=== PATIENT | female | born 1955 ===

== ENCOUNTER 2017-07-05 09:35 | Outpatient (CLI) | payer MEDICARE, MEDICAID ==
--- NOTE | 2017-07-05 10:42 | MRI ---
MRI BRAIN NONCONTRAST: HISTORY: 62-year-old female with H53.9 - vision changes; R51 - frequent headaches. FINDINGS: The ventricles are normal in size and configuration. There is no restricted diffusion, midline shift or any other mass effect, recent intraaxial hemorrhage, or extraaxial fluid collection. There are a few scattered punctate T2-hyperintensities in the cerebral white matter consistent with mild chronic ischemic white matter changes due to mild microvascular atherosclerosis. IMPRESSION: 1. Mild chronic ischemic white matter changes. 2. Otherwise negative. elan POS: [facility]
--- NOTE | 2017-07-05 12:30 | MRI ---
CERVICAL SPINE MRI NONCONTRAST: INDICATIONS: Bilateral upper extremity weakness. History of remote neck injury. FINDINGS: The cervical spinal cord demonstrates appropriate caliber and contour. The craniocervical junction i s intact. C1-C2: No evidence of central canal stenosis. C2-C3: No evidence of central canal stenosis. C3-C4: There is a mild disk bulge without significant central canal stenosis. There is mild right f oraminal stenosis. No high grade left foraminal narrowing. C4-C5: No significant central canal narrowing or neural foraminal stenosis. C5-C6: Mild disk bulge without significant central canal narrowing or neural foraminal stenosis. C6-C7: Mild broad-based disk bulge with mild narrowing of the right neural foramen. No significant central canal or left foraminal compromise. C7-T1: No significant central canal or neural foraminal stenosis. Incidental note of small, round T2 hyperintensity within the cervical spinal cord, at the C4 through C6 levels, compatible with benign dilatation of the central spinal canal. No significant marrow signal abnormalities. No compression deformities or evidence of subluxation. IMPRESSION: Mild disk bulges of the cervical spine with associated mild foraminal narrowing. No significant cord compromise. POS: [facility]
--- NOTE | 2017-07-05 12:39 | MRI ---
LUMBAR SPINE MRI WITHOUT CONTRAST: Clinical history: Bilateral lower extremity weakness FINDINGS: Vertebral body heights maintain appropriate alignment. There is mild multilevel Schmorl's node format ion. No acute marrow edema or subluxation. There is a transitional lumbosacral segment which will be deemed as sacralized L5 segment given the presence of iliolumbar ligaments at this level. No evidence of acute abnormality within the imaged retroperitoneum. L5-S1: Rudimentary disc space without significant central canal or neural foraminal stenosis. L4-5: Minimal narrowing of the central canal due to broad based mild disc osteophyte complex. No hydr onephrosis. L3-4: Minimal narrowing of the central canal due to broad based disc osteophyte. There is mild left n eural foraminal narrowing. No significant right neural foraminal narrowing. L2-3: Mild narrowing of the central canal with crowding of the traversing left L3 nerve root due to l eft asymmetric disc osteophyte complex. No high grade foraminal stenosis. L1-2: No significant central canal or neural foraminal stenosis. Conus medullaris demonstrates normal morphology, terminating at the T12-L1 level. There is mild multi level bilateral facet osteoarthritis. IMPRESSION: Mild multilevel degenerative changes at the lumbar spine, as outlined above. POS: [facility]
== END 2017-07-05 09:36 | disposition home or self-care (01) ==
LOC: MRI 09:35
PROVIDERS: ATTEND Student in an Organized Health Care Education/Training Program
DX: M54.5 Low back pain (principal); M62.81 Muscle weakness (generalized); H53.9 Unspecified visual disturbance; R51 Headache; M47.896 Other spondylosis, lumbar region; M50.30 Other cervical disc degeneration, unspecified cervical region; M99.81 Other biomechanical lesions of cervical region; G93.89 Other specified disorders of brain
CPT/HCPCS: 70551; 72141; 72148